=== PATIENT | female | born 1995 | race Caucasian/White ===

== ENCOUNTER 2016-11-24 14:32 | Outpatient (CLI) | payer OTHER ==
--- NOTE | 2016-11-24 15:13 | DIAGNOSTIC IMAGING REPORT ---
PROCEDURE: XR KNEE 4 VIEWS - RIGHT INDICATION: PAIN IN RIGHT KNEE TECHNIQUE: Four views. COMPARISON: Right knee films 10/03/2015 FINDINGS: There is a 2 cm osseous density lateral to the patella which may represent an old fracture. There are mild degenerative changes in the lateral compartment with a 2 mm osseous density. The rest of the osseous structures and joint spaces are normal. Findings suggest moderate effusion. IMPRESSION: 1. There is a 2 cm osseous density in the lateral patella which may represent old fracture or loose body. An acute fracture is less likely. 2. Mild degenerative changes lateral compartment. 3. 2 mm osseous density overlying the lateral compartment may be post-traumatic or could represent loose body. 4. Moderate effusion.
== END 2016-11-24 23:00 ==
LOC: XR SRH 14:32
DX: M17.11 Unilateral primary osteoarthritis, right knee (principal); M25.461 Effusion, right knee